=== PATIENT | male | born 1965 | race Native Hawaiian/Other Pacific Islander ===

== ENCOUNTER 2021-12-21 22:17 | Emergency (ER) | payer OTHER ==
[~2021-12-21] VITALS: Ht 182.9 cm; Wt 93.0 kg
[2021-12-21 23:20] VITALS: BP 115/82; TEMP 98.1
== END 2021-12-21 23:23 | disposition home or self-care (01) ==
LOC: ED 22:17
DX: G44.209 Tension-type headache, unspecified, not intractable (principal); V89.2XXA Person injured in unspecified motor-vehicle accident, traffic, initial encounter; Y92.89 Other specified places as the place of occurrence of the external cause
CPT/HCPCS: 96372; 99283; J1100; J1885